=== PATIENT | female | born 1975 | race Two or more races ===

== ENCOUNTER → 2021-07-20 | Outpatient (CLI) | payer OTHER ==
--- NOTE | 2021-07-20 17:26 | RAD ---
EXAM: XR LUMBAR SPINE 2-3V 07/20/2021 8:54 AM CLINICAL INDICATION: Low back pain COMPARISON: None TECHNIQUE: 2 views of the lumbar spine. FINDINGS: For the purpose of this report, a numbering system with small ribs at L1 and the lowest di sc space labeled L5-S1 is used. No acute fracture. Alignment is normal. There is mild multilevel disc space narrowing, greatest at L5-S1. There is moderate facet arthrosis at L5-S1. IMPRESSION: 1. Overall mild degenerative disc disease. 2. Probable moderate facet arthrosis at L5-S1. 3. Please see above regarding the vertebral body numbering system for this report. Electronically signed by: Dali Borjas MD (07/20/2021 5:24 PM) [id number]
== END ==
LOC: RAD 08:37
PROVIDERS: ATTEND Anesthesiology Pain Medicine
DX: Z02.71 Encounter for disability determination (principal); M47.817 Spondylosis without myelopathy or radiculopathy, lumbosacral region; M51.36 Other intervertebral disc degeneration, lumbar region; M48.07 Spinal stenosis, lumbosacral region
CPT/HCPCS: 72100